=== PATIENT | female | born 1935 | race Caucasian/White ===

== ENCOUNTER 2018-06-29 13:30 | Emergency (ER) | payer OTHER ==
[~2018-06-29] VITALS: Ht 152.4 cm; Wt 76.8 kg
[~2018-06-29 13:30] MED LIST: CYANOCOBAL1000 MCG/2 IM; KLOR-CON20 MEQ PO; LOSARTAN-HCTZ1 EAC1 PO; ONDANSETRON ODT8 MG PO; PENTASA250 MG PO; PRENATAL MULTI1 EAC3 PO; PROCRIT40000 UNI1 SC; TOPROL XL100 MG PO; ULTRACET1 TABLET PO; VOLTAREN50 MG PO
[2018-06-29 14:10] LABS: BASOPHIL (%) 0.5 % (0-1); BASOPHIL COUNT 0.1 K/uL (0-0.1); EOSINOPHIL (%) 2.2 % (0-5); EOSINOPHIL COUNT 0.3 K/uL (0-0.3); HEMATOCRIT 44.9 % (36.0-46.0); HEMOGLOBIN 14.8 G/DL (11.9-15.5); IMMATURE GRANULOCYTE (%) 4.3 % (0.0-0.7); LYMPHOCYTE (%) 12.2 % (15-42); LYMPHOCYTE COUNT 1.6 K/uL (1.0-2.8); MCH 29.4 PG (29.0-34.0); MCV 89.3 FL (83-99); MONOCYTE (%) 6.7 % (3-12); MONOCYTE COUNT 0.9 K/uL (0-0.8); NEUTROPHIL (%) 74.1 % (45-76); NEUTROPHIL COUNT 9.6 K/uL (1.8-6.4); PLATELET COUNT 203 K/uL (156-360); RBC DIS.WIDTH-CV 14.5 % (11.8-14.6); RBC DIS.WIDTH-SD 46.8 % (39-53); RED BLOOD COUNT 5.03 M/uL (3.80-5.20); WHITE BLOOD COUNT 12.9 K/uL (4.1-10.2)
[2018-06-29 14:24] LABS: CHLORIDE 97 mEq/L (99-109); POTASSIUM 3.7 mEq/L (3.7-5.4); SODIUM 138 mEq/L (136-147)
[2018-06-29 14:36] LABS: GLUCOSE 183 mg/dL (70-99)
[2018-06-29 14:40] LABS: CREATININE 1.2 mg/dL (0.6-1.3); GFR ESTIMATE (CALCULATED) 46 mL/min/
[2018-06-29 14:41] LABS: UREA NITROGEN (BUN) 32 mg/dL (9-23)
[2018-06-29 15:30] VITALS: BP 143/69
== END 2018-06-29 15:31 | disposition home or self-care (01) ==
LOC: EME 13:30
PROVIDERS: Emergency Medicine
DX: R19.7 Diarrhea, unspecified (principal); R55 Syncope and collapse; I10 Essential (primary) hypertension; Z85.6 Personal history of leukemia; Z88.5 Allergy status to narcotic agent; Z88.6 Allergy status to analgesic agent
CPT/HCPCS: 80048; 85025; 93005; 99281; 99285; J7030